=== PATIENT | male | born 1940 | race Caucasian/White ===

== ENCOUNTER 2017-08-25 10:51 | Emergency (ER) | payer OTHER ==
[2017-08-25 11:05] VITALS: RESP 16; TEMP 97.7
--- NOTE | 2017-08-25 11:26 | EDPHY ---
H & P Time Seen by Provider: 08/25/17 11:04 HPI/ROS: CHIEF COMPLAINT: Right posterior thigh pain HISTORY OF PRESENT ILLNESS: 76-year-old male presents with right posterior thigh pain. Yesterday evening, he was walking on an uneven surface, placed his right foot on the ground, but the surface was lower than he expected, and he struck his foot down much harder than expected. This, combined with substantial windy conditions outside, caused him to fall onto his side and a backpack he was carrying. He had immediate onset of right posterior thigh pain with the initial foot strike. The pain runs up and down his thigh posteriorly, and he does not have knee or hip pain. He has had difficulty walking since the injury and is now using crutches to ambulate. He took ibuprofen 1 tablet this morning with some relief. No other injuries related to the fall. REVIEW OF SYSTEMS: Constitutional: No weakness Eyes: No visual changes ENT: No facial trauma Neck:No pain or injury Respiratory: No shortness of breath Cardiac: No chest pain Gastrointestinal: No abdominal pain Back:No pain or injury Genitourinary: No hematuria Musculoskeletal: No joint pain Skin: No lacerations Neurological: No headache, no dizziness Past Medical/Surgical History: Denies Social History: Smoking Status: Never smoked Physical Exam: General Appearance: Alert, pleasant Head: Atraumatic Eyes: No conjunctival erythema ENT, Mouth: no bony tenderness Neck: Nontender, full range of motion without pain Respiratory: No chest wall tenderness, lungs clear bilaterally Cardiovascular: Regular rate and rhythm Abdomen: Abdomen is soft and nontender Skin: No lacerations Back: No midline T/L/S tenderness Extremities: Pelvis is stable, tender over the ischial tuberosity and upper posterior thigh, no swelling or ecchymosis; right hip and knee-normal range of motion without pain Neurological: A&Ox3, normal motor function, normal sensory exam, cranial nerves intact Psychiatric: Mood and affect normal Constitutional: Initial Vital Signs Temperature (C) 36.5 C 08/25/17 11:00 Heart Rate 80 08/25/17 11:00 Respiratory Rate 16 08/25/17 11:00 Blood Pressure 174/81 H 08/25/17 11:00 O2 Sat (%) 94 08/25/17 11:00 O2 Delivery Mode Room Air Allergies/Adverse Reactions: No Known Allergies Allergy (Unverified 08/25/17 10:58) Home Medications: Medication Instructions Recorded NK [No Known Home Meds] 08/25/17 Medical Decision Making - Diagnostics Imaging Results: Imaging Impressions Pelvis X-Ray 08/25/17 11:22 Impression: 1. No significant abnormality seen about the pelvis. Pelvis x-ray independently reviewed by me reveals no acute fracture. ED Course/Re-evaluation: This patient presents with right posterior thigh pain after an injury, consistent with muscle strain. X-ray ordered to rule out an avulsion fracture. X-ray is negative. Results discussed with the patient's . Ibuprofen instructions given. He will continue used crutches while the pain persists. If he is not better in 3-4 days, he will follow up with his primary care physician. Differential Diagnosis: Differential diagnosis includes does not limited to fracture, dislocation, tendon rupture. Departure - Departure Disposition: Home, Routine, Self-Care Clinical Impression: Right hamstring muscle strain Qualifiers: Encounter type: initial encounter Qualified Code(s): S76.311A - Strain of muscle, fascia and tendon of the posterior muscle group at thigh level, right thigh, initial encounter Condition: Good Instructions: Muscle Strain (ED) Additional Instructions: Ibuprofen 600 mg 3 times daily while the pain persists. Referrals: Thomas Echeverria MD [Primary Care Provider] - 3-4 days, if not improved
[2017-08-25 12:16] VITALS: BP 127/62; PULSE 54; O2SAT 92
== END 2017-08-25 12:15 | disposition home or self-care (01) ==
LOC: CED 10:51
DX: S76.311A Strain of muscle, fascia and tendon of the posterior muscle group at thigh level, right thigh, initial encounter (principal); W18.39XA Other fall on same level, initial encounter
CPT/HCPCS: 72170-PO